=== PATIENT | female | born 2000 | race Caucasian/White ===

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

== ENCOUNTER 2021-07-03 13:43 | Observation (INO) | payer MEDICAID ==
[2021-07-03 14:04] VITALS: BP 129/75; PULSE 115
[2021-07-03] MEDS ORDERED: Lactated Ringers 1,000 ML IV ONE (14:23)
[2021-07-03] MEDS ORDERED: BRETHINE 1 MG/ML SQ ONE (14:23)
== END 2021-07-03 16:30 | disposition home or self-care (01) ==
LOC: OB 13:43
PROVIDERS: ADMIT Family Medicine; ATTEND Family Medicine
DX: Z34.83 Encounter for supervision of other normal pregnancy, third trimester (principal); Z3A.34 34 weeks gestation of pregnancy
CPT/HCPCS: G0378

== ENCOUNTER 2021-07-04 13:20 | Observation (INO) | payer MEDICAID ==
[2021-07-04 14:18] LABS: Amphetamine,Urine NEGATIVE (NEGATIVE); Barbiturate,Urine NEGATIVE (NEGATIVE); Benzodiazepine,Urine NEGATIVE (NEGATIVE); Cocaine,Urine NEGATIVE (NEGATIVE); Methadone,Urine NEGATIVE (NEGATIVE); Opiate,Urine NEGATIVE (NEGATIVE); PCP,Urine NEGATIVE (NEGATIVE); THC,Urine NEGATIVE (NEGATIVE)
[2021-07-04] MEDS: PROCARDIA 10 MG PO ONE (14:35)
[2021-07-04] MEDS: Celestone Soluspan 6MG/ML IM ONE (16:41)
[2021-07-04] MEDS: BRETHINE 1 MG/ML SQ ONE (16:41)
[2021-07-04] MEDS: Lactated Ringers 1,000 ML IV ONE (16:42)
--- NOTE | 2021-07-04 16:47 | PCM.SSS ---
History of Present Illness - Chief Complaint Chief Complaint: R/O labor History of Present Illness: is a 21 year old female at 35 wks EGA presented c/o contractions, she is in pain with contractions, no other complaints. history of 1 prior delivery. - Review of Systems Respiratory: No Cough, No Short Of Breath Cardiac: No Chest Pain, No Edema, No Syncope Abdominal/Gastrointestinal: Other (contractions, abd pain) Genitourinary Symptoms: No Dysuria Skin: No Rash All Other Systems: Reviewed and Negative Medications & Allergies Home Medications: Home Medication List Vits W-Ca,Fe,FA(<1Mg) [] 1 each PO DAILY 11/03/17 [History Confirmed 07/04/21] Allergies/Adverse Reactions: Allergies Allergy/AdvReac Type Severity Reaction Status Date / Time No Known Drug Allergies Allergy Verified 07/04/21 14:31 - Past Medical History Past Medical History: No Neurological History: No Pertinent History Cardiac History: No Pertinent History Respiratory History: No Pertinent History Endocrine Medical History: No Pertinent History Musculoskelatal History: No Pertinent History Comment: L ankle sprain prior to knee injury. - Female History Expected Date of Delivery: 08/08/21 - Past Surgical History Past Surgical History: Yes Neuro Surgical History: No Pertinent History Cardiac History: No Pertinent History Respiratory Surgery: No Pertinent History GI Surgical History: No Pertinent History Genitourinary Surgical Hx: No Pertinent History Female Surgical History: No Pertinent History Other Surgical History: acl repair - Social History Smoking Status: Never smoker Exposure to second hand smoke: No Alcohol: None Drug Use: none - Physical Exam Vital Signs: Vital Signs - 24 hr Temp Resp BP 07/04/21 13:39 97.8 F 18 132/67 General Appearance: no apparent distress, alert Neurologic Exam: alert, oriented x 3 Respiratory Exam: normal breath sounds, lungs clear, No respiratory distress Cardiovascular Exam: regular rate/rhythm, normal heart sounds, normal peripheral pulses Gastrointestinal/Abdomen Exam: other (gravid, nontender. no guarding or rebound) Extremity Exam: normal inspection, normal range of motion, pelvis stable Skin Exam: normal color, warm, dry, No rash Results - Labs Lab/Micro Results: Lab Results-Last 24 Hours 07/04/21 Range/Units 13:45 Urine Opiates Level NEGATIVE (NEGATIVE) Ur Methadone NEGATIVE (NEGATIVE) Urine Barbiturates NEGATIVE (NEGATIVE) Ur Phencyclidine (PCP) NEGATIVE (NEGATIVE) Urine Amphetamine NEGATIVE (NEGATIVE) U Benzodiazepine Level NEGATIVE (NEGATIVE) Urine Cocaine NEGATIVE (NEGATIVE) Urine Marijuana (THC) NEGATIVE (NEGATIVE) Assessment/Plan (1) labor Current Visit: Yes Status: Acute Assessment & Plan: IV fluid bolus and sub-q terbutaline ordered, I spoke with Dr Ramirez from [place] [facility] and he accepted patient in transfer due to gestation with concern for early labor Code(s): O60.00 - LABOR WITHOUT DELIVERY, UNSPECIFIED [facility]IME[facility] Hospital Summary - Vitals & Intake/Output Vital Signs: Vital Signs Temperature 97.8 F 07/04/21 13:39 Pulse Rate Respiratory Rate 18 07/04/21 13:39 Blood Pressure 132/67 07/04/21 13:39 O2 Sat by Pulse Oximetry Intake & Output: Intake & Output 07/02/21 07/03/21 07/04/21 07/05/21 11:59 11:59 11:59 11:59 Weight 102.058 kg - Lab Lab Results-Last 24 Hrs: Lab Results-Last 24 Hours 07/04/21 Range/Units 13:45 Urine Opiates Level NEGATIVE (NEGATIVE) Ur Methadone NEGATIVE (NEGATIVE) Urine Barbiturates NEGATIVE (NEGATIVE) Ur Phencyclidine (PCP) NEGATIVE (NEGATIVE) Urine Amphetamine NEGATIVE (NEGATIVE) U Benzodiazepine Level NEGATIVE (NEGATIVE) Urine Cocaine NEGATIVE (NEGATIVE) Urine Marijuana (THC) NEGATIVE (NEGATIVE) - Discharge Disposition: DC TO [facility] Condition: Stable Prescriptions: No Action Vits W-Ca,Fe,FA(<1Mg) [] 1 each PO DAILY Follow up with: LAMIN DENIS [Primary Care Provider] -
[2021-07-04 17:53] VITALS: BP 135/67
[2021-07-04 18:05] VITALS: PULSE 90; O2SAT 99
== END 2021-07-04 17:20 | disposition home or self-care (01) ==
LOC: OB 13:20
PROVIDERS: ADMIT Family Medicine; ATTEND Family Medicine
DX: O60.03 Preterm labor without delivery, third trimester (principal); Z3A.35 35 weeks gestation of pregnancy
CPT/HCPCS: 80307; 84112; J0702; A9270-GY

== ENCOUNTER 2021-07-20 07:52 | Observation (INO) | payer MEDICAID ==
[2021-07-20 08:54] LABS: Appearance SLIGHTLY CLOUDY (CLEAR); Bilirubin NEGATIVE (NEGATIVE); Blood MODERATE Ery/ul (0-5); Epithelial Cells FEW /HPF (FEW); Glucose NEGATIVE (NEGATIVE); Ketones NEGATIVE (NEGATIVE); Leukocyte Esterase NEGATIVE (NEGATIVE); Mucus SLIGHT /HPF (NEGATIVE); Nitrite NEGATIVE (NEGATIVE); Protein,Urine Dip NEGATIVE (Negative); RBC 51-100 /HPF (0-2); Specific Gravity 1.006 (1.005-1.025); Urobilinogen NEGATIVE mg/dL (0-1); WBC 0-2 /HPF (0-5)
[2021-07-20 09:01] LABS: COVID AG -BINAX NOW RAPID TEST NEGATIVE (NEGATIVE)
[2021-07-20 09:04] LABS: Amphetamine,Urine NEGATIVE (NEGATIVE); Barbiturate,Urine NEGATIVE (NEGATIVE); Benzodiazepine,Urine NEGATIVE (NEGATIVE); Cocaine,Urine NEGATIVE (NEGATIVE); Methadone,Urine NEGATIVE (NEGATIVE); Opiate,Urine NEGATIVE (NEGATIVE); PCP,Urine NEGATIVE (NEGATIVE); THC,Urine NEGATIVE (NEGATIVE)
[2021-07-20] MEDS ORDERED: Zofran 4 MG/2 ML VIAL IV PRN (13:28)
[2021-07-20] MEDS ORDERED: XYLOCAINE 1% HCL 20 ML MDV IJ PRN (13:28)
[2021-07-20] MEDS ORDERED: TYLENOL EXTRA STRENGTH 500 MG PO PRN (13:28)
[2021-07-20] MEDS ORDERED: Lactated Ringers 1,000 ML IV ONE (13:30)
[2021-07-20] MEDS ORDERED: PITOCIN 30 UNITS/ LR 500 ML 30 UNITS/500 ML PLAST..BAG IV SCH (13:30)
[2021-07-20] MEDS ORDERED: FENTANYL 2 MCG-BUPIV 0.125%-NS 250 ML Epidur 250 ML EPIDURAL SCH (13:30)
[2021-07-20] MEDS ORDERED: Ephedrine Sulfate 50 MG/ML IV PRN (13:30)
[2021-07-20] MEDS ORDERED: Lactated Ringers 1,000 ML IV SCH (13:30)
[2021-07-20 14:20] LABS: Absolute Neutrophil Ct (ANC) 5.79 (1.4-6.9); Basophil (Absolute #) 0.01 (0-0.4); Eosinophil % 0.4 % (0.00-5.0); Eosinophil (Absolute #) 0.03 (0-0.5); Hematocrit 34.6 % (35-47); Hemoglobin 11.1 gm/dl (12.0-16.0); Lymphocyte (Absolute #) 1.89 (1.0-4.6); Lymphocytes % 22.5 % (24.0-44.0); Mean Cell Volume 79.7 fl (78-100); Mean Corpuscular Hemoglobin 25.6 pg (26-32); Mean Corpuscular Hgb Concent. 32.1 g/dl (32-36); Mean Platelet Volume 12.5 fl (7.5-11.0); Monocyte (Absolute #) 0.67 (0.0-1.3); Platelet Count 158 K/mm3 (150-450); Red Blood Count 4.34 M/mm3 (4.1-5.4); Red Cell Distribution Width 14.3 % (11.5-14.0); White Blood Count 8.4 K/mm3 (4.0-10.5)
[2021-07-20 15:52] LABS: ABO TYPING A; Antibody Screen NEGATIVE (NEGATIVE); RH TYPING POSITIVE
[2021-07-20 20:56] VITALS: PULSE 108; O2SAT 100
[2021-07-20 20:58] VITALS: BP 153/76
[2021-07-21] MEDS ORDERED: NON-FORMULARY ITEM (Prenatal Vits W-Ca,Fe,Fa(<1mg) [Prenatal] 1 EACH Tablet) PO SCH (10:00)
[2021-07-23 12:06] LABS: HBsAg Screen Negative (Negative)
== END 2021-07-20 20:50 | disposition home or self-care (01) ==
LOC: MED SURG 07:52 → OB 09:21
PROVIDERS: ADMIT Family Medicine; ATTEND Family Medicine
DX: Z34.83 Encounter for supervision of other normal pregnancy, third trimester (principal); Z3A.37 37 weeks gestation of pregnancy; Z20.828 Contact with and (suspected) exposure to other viral communicable diseases
CPT/HCPCS: 36415; 80307; 81001; 85025; 86850; 86900; 86901; 87340; 99000; G0378

== ENCOUNTER 2021-07-21 10:42 | Inpatient (IN) | payer MEDICAID ==
[2021-07-21] MEDS ORDERED: XYLOCAINE 1% HCL 20 ML MDV IJ PRN (10:55)
[2021-07-21] MEDS ORDERED: Zofran 4 MG/2 ML VIAL IV PRN (10:55)
[2021-07-21] MEDS ORDERED: PITOCIN 30 UNITS/ LR 500 ML 30 UNITS/500 ML PLAST..BAG IV SCH (11:00)
[2021-07-21] MEDS ORDERED: Ephedrine Sulfate 50 MG/ML IV PRN (11:02)
[2021-07-21] MEDS ORDERED: Lactated Ringers 1,000 ML IV ONE (11:02)
[2021-07-21] MEDS ORDERED: FENTANYL 2 MCG-BUPIV 0.125%-NS 250 ML Epidur 250 ML EPIDURAL SCH (11:15)
[2021-07-21 11:31] LABS: Absolute Neutrophil Ct (ANC) 4.17 (1.4-6.9); Basophil (Absolute #) 0.01 (0-0.4); Eosinophil % 0.7 % (0.00-5.0); Eosinophil (Absolute #) 0.05 (0-0.5); Hematocrit 33.5 % (35-47); Hemoglobin 10.9 gm/dl (12.0-16.0); Lymphocyte (Absolute #) 2.19 (1.0-4.6); Lymphocytes % 31.2 % (24.0-44.0); Mean Cell Volume 79.4 fl (78-100); Mean Corpuscular Hemoglobin 25.8 pg (26-32); Mean Corpuscular Hgb Concent. 32.5 g/dl (32-36); Mean Platelet Volume 12.7 fl (7.5-11.0); Monocyte (Absolute #) 0.59 (0.0-1.3); Monocytes % 8.4 % (0.0-12.0); Neutrophil % 59.6 % (36.0-66.0); Platelet Count 171 K/mm3 (150-450); Red Blood Count 4.22 M/mm3 (4.1-5.4); Red Cell Distribution Width 14.3 % (11.5-14.0)
[2021-07-21] MEDS: Lactated Ringers 1,000 ML IV SCH ×2 (12:20→19:52)
[2021-07-22] MEDS ORDERED: BRETHINE 1 MG/ML SQ PRN (00:16)
[2021-07-22] MEDS ORDERED: PITOCIN 30 UNITS/ LR 500 ML 30 UNITS/500 ML PLAST..BAG IV SCH (00:30)
[2021-07-22] MEDS: TYLENOL EXTRA STRENGTH 500 MG PO PRN ×2 (00:46→22:21)
[2021-07-22] MEDS: Lactated Ringers 1,000 ML IV SCH (03:29)
[2021-07-22] MEDS ORDERED: Dermoplast Spray TP PRN (05:00)
[2021-07-22] MEDS ORDERED: LANSINOH 40 GM TOP PRN (05:00)
[2021-07-22] MEDS ORDERED: Mylicon 80MG PO PRN (05:00)
[2021-07-22] MEDS ORDERED: Anucort-HC SUPPOSITORY PR PRN (05:00)
[2021-07-22] MEDS ORDERED: NORCO 5/325 MG PO PRN (05:00)
[2021-07-22] MEDS ORDERED: CORTISONE 1% CREAM TP PRN (05:00)
[2021-07-22] MEDS ORDERED: Dulcolax 10 MG SUPP PR PRN (10:00)
[2021-07-22] MEDS: MOTRIN 400 MG PO PRN (17:13)
[2021-07-22] MEDS: Colace 100 MG PO SCH ×2 (17:14→22:18)
[2021-07-23 06:36] LABS: Absolute Neutrophil Ct (ANC) 4.05 (1.4-6.9); Basophil (Absolute #) 0.02 (0-0.4); Eosinophil (Absolute #) 0.08 (0-0.5); Hematocrit 31.5 % (35-47); Hemoglobin 10.2 gm/dl (12.0-16.0); Lymphocyte (Absolute #) 3.11 (1.0-4.6); Lymphocytes % 39.1 % (24.0-44.0); Mean Cell Volume 80.4 fl (78-100); Mean Corpuscular Hgb Concent. 32.4 g/dl (32-36); Mean Platelet Volume 12.1 fl (7.5-11.0); Monocyte (Absolute #) 0.69 (0.0-1.3); Monocytes % 8.7 % (0.0-12.0); Neutrophil % 50.9 % (36.0-66.0); Platelet Count 146 K/mm3 (150-450); Red Blood Count 3.92 M/mm3 (4.1-5.4); Red Cell Distribution Width 14.6 % (11.5-14.0)
[2021-07-23] MEDS: Colace 100 MG PO SCH (10:11)
[2021-07-23] MEDS: MOTRIN 400 MG PO PRN (10:54)
[2021-07-23] MEDS: FERREX 150 PO SCH (10:55)
[2021-07-23] MEDS ORDERED: Adacel Vial IM ONE (15:00)
[2021-07-23 20:24] VITALS: O2SAT 98
[2021-07-24] MEDS: Colace 100 MG PO SCH ×2 (01:04→09:20)
[2021-07-24 06:02] LABS: Basophil (Absolute #) 0.01 (0-0.4); Eosinophil % 2.2 % (0.00-5.0); Hematocrit 30.4 % (35-47); Hemoglobin 9.6 gm/dl (12.0-16.0); Lymphocytes % 30.4 % (24.0-44.0); Mean Cell Volume 80.9 fl (78-100); Mean Corpuscular Hemoglobin 25.5 pg (26-32); Mean Corpuscular Hgb Concent. 31.6 g/dl (32-36); Monocyte (Absolute #) 0.68 (0.0-1.3); Monocytes % 7.6 % (0.0-12.0); Neutrophil % 59.7 % (36.0-66.0); Platelet Count 162 K/mm3 (150-450); Red Blood Count 3.76 M/mm3 (4.1-5.4); Red Cell Distribution Width 14.8 % (11.5-14.0); White Blood Count 8.9 K/mm3 (4.0-10.5)
[2021-07-24] MEDS: MOTRIN 400 MG PO PRN (07:01)
[2021-07-24 08:29] VITALS: BP 127/89; PULSE 81
--- NOTE | 2021-07-24 08:48 | PCM.DS ---
Discharge Summary Date of Admission: 07/21/21 10:42 Admitting Physician: ROCHELLE ALVARENGA Consults: Consults on Case 07/21/21 11:02 Notify Anesthesia Provider PRAlo 07/22/21 05:00 Notify Physician MADDI 07/22/21 09:30 Navigation ONCE Primary Care Provider: LAMIN DENIS Allergies Allergies No Known Drug Allergies Allergy (Verified 07/20/21 08:57) Hospital Summary - Hospital Course Hospital Course: patient arrived in spont labor with SROM at 37+wks EGA, delivered a 10#1oz viable male over intact perineum, no complications or repair required, doing well with routine care - Vitals & Intake/Output Vital Signs: Vital Signs Temperature 98.2 F 07/24/21 08:00 Pulse Rate 81 07/24/21 08:00 Respiratory Rate 20 07/24/21 08:00 Blood Pressure 127/89 07/24/21 08:00 O2 Sat by Pulse Oximetry 98 07/24/21 02:00 Intake & Output: Intake & Output 07/21/21 07/22/21 07/23/21 07/24/21 11:59 11:59 11:59 11:59 Intake Total 4125 400 2700 Output Total 3700 Balance 438 333 9125 Weight 104.78 kg - Lab Result Diagrams: 07/24/21 05:53 Lab Results-Last 24 Hrs: Lab Results-Last 24 Hours 07/24/21 Range/Units 05:53 WBC 8.9 (4.0-10.5) K/mm3 RBC 3.76 L (4.1-5.4) M/mm3 Hgb 9.6 L (12.0-16.0) gm/dl Hct 30.4 L (35-47) % MCV 80.9 (78-100) fl MCH 25.5 L (26-32) pg MCHC 31.6 L (32-36) g/dl RDW 14.8 H (11.5-14.0) % Plt Count 162 (150-450) K/mm3 MPV 12.0 H (7.5-11.0) fl Gran % 59.7 (36.0-66.0) % Eos # (Auto) 0.20 (0-0.5) Absolute Lymphs (auto) 2.70 (1.0-4.6) Absolute Monos (auto) 0.68 (0.0-1.3) Lymphocytes % 30.4 (24.0-44.0) % Monocytes % 7.6 (0.0-12.0) % Eosinophils % 2.2 (0.00-5.0) % Basophils % 0.1 (0.0-0.4) % Absolute Granulocytes 5.30 (1.4-6.9) Basophils # 0.01 (0-0.4) Micro Results-Entire Visit: Microbiology 07/21/21 14:12 Urine Culture - Final Urine, Indwelling Catheter NO GROWTH - Procedures and Test Procedures and Tests throughout Hospitalization: Therapy Orders & Screens 07/22/21 06:19 Standby ROUTINE Comment: Discharge Exam General Appearance: no apparent distress, alert Respiratory Exam: normal breath sounds, lungs clear, No respiratory distress Cardiovascular Exam: regular rate/rhythm, normal heart sounds Gastrointestinal/Abdomen Exam: soft, No tenderness, No mass Extremity Exam: pedal edema Skin Exam: normal color, warm, dry Final Diagnosis/Problem List - Final Discharge Diagnosis/Problem (1) Vaginal delivery Current Visit: No Status: Acute Code(s): O80 - ENCOUNTER FOR FULL-TERM UNCOMPLICATED DELIVERY - Discharge Disposition: Home, Self-Care Condition: Stable Prescriptions: Continue Vits W-Ca,Fe,FA(<1Mg) [] 1 each PO DAILY Follow up with: LAMIN DENIS [Primary Care Provider] -
[2021-07-24] MEDS: FERREX 150 PO SCH (09:20)
== END 2021-07-24 12:04 | disposition home or self-care (01) | DRG 807 ==
LOC: OBSVTOIN 10:42 → OB 10:42
PROVIDERS: ADMIT Family Medicine; ATTEND Family Medicine
PROC: 10E0XZZ Delivery of Products of Conception, External Approach (ICD-10-PCS; principal; 2021-07-21)
DX: O80 Encounter for full-term uncomplicated delivery (principal); Z37.0 Single live birth; Z3A.37 37 weeks gestation of pregnancy
CPT/HCPCS: 36415; 76816; 80307; 81001; 84112; 85025; 86850; 86900; 86901; 87086; 87340; 90715; 94799; 99000; G0378; J2590; A9270-GY